=== PATIENT | female | born 1985 | race African-American/Black ===

== ENCOUNTER 2016-11-14 12:38 | Emergency (ER) | payer SELFPAY ==
[~2016-11-14] VITALS: Ht 167.6 cm; Wt 95.0 kg
[2016-11-14] MEDS ORDERED: IBUPROFEN 600MG TABLET PO STA (13:38)
[2016-11-14 13:49] VITALS: BP 140/98
== END 2016-11-14 15:52 | disposition home or self-care (01) ==
LOC: ER 13:12
DX: S20.219A Contusion of unspecified front wall of thorax, initial encounter (principal); F17.200 Nicotine dependence, unspecified, uncomplicated; F12.10 Cannabis abuse, uncomplicated; V49.9XXA Car occupant (driver) (passenger) injured in unspecified traffic accident, initial encounter; Y93.89 Activity, other specified; Y99.8 Other external cause status; Y92.410 Unspecified street and highway as the place of occurrence of the external cause
CPT/HCPCS: 71010; 99283; 99406; Z7610

== ENCOUNTER 2023-05-12 09:54 | Emergency (ER) | payer MEDICAID ==
[~2023-05-12] VITALS: Ht 167.6 cm; Wt 91.0 kg
[2023-05-12 10:15] VITALS: O2SAT 100
[2023-05-12 11:23] LABS: BASOPHILS % 0.5 % (0.0-2.0); EOSINOPHILS % 1.9 % (0.0-5.0); HEMATOCRIT. 46.4 % (36.0-48.0); LYMPHOCYTES % 25.1 % (20.0-50.0); MEAN CORPUSCULAR HEMOGLOBIN 34.2 pg (28.0-32.0); MEAN CORPUSCULAR HGB CONC 34.5 g/dL (31.0-37.0); MEAN CORPUSCULAR VOLUME 99.4 fL (81.0-99.0); MONOCYTES % 4.4 % (2.0-8.0); NEUTROPHILS % 68.1 % (40.0-76.0); PLATELET 215 x1000/uL (130-400); RED BLOOD CELL COUNT 4.67 mill/uL (4.2-5.4); RED CELL DISTRIBUTION WIDTH 12.3 % (11.6-14.6); WHITE BLOOD COUNT 8.4 x1000/uL (4.5-11.0)
[2023-05-12 11:30] LABS: PROTHROMBIN TIME 10.3 sec (9.6-11.0)
[2023-05-12 11:43] LABS: ALANINE AMINOTRANSFERASE 7 IU/L (10-49); ALBUMIN 4.4 g/dL (3.2-4.8); ASPARTATE AMINOTRANSFERASE 11 IU/L (<34); BILIRUBIN TOTAL 0.5 mg/dL (0.1-1.0); CALCIUM 9.6 mg/dL (8.7-10.4); CARBON DIOXIDE 21 mEq/L (21-32); CHLORIDE 101 mEq/L (98-107); CREATININE 0.6 mg/dL (0.6-1.0); GLUCOSE 332 mg/dL (70-105); PROTEIN TOTAL 6.8 g/dL (6.0-8.3); SODIUM 133 mEq/L (136-145)
[2023-05-12 12:44] LABS: UREA NITROGEN BLOOD < 5 mg/dL (9-23)
[2023-05-12 15:51] LABS: CLARITY URINE CLEAR (CLEAR); COLOR URINE YELLOW (YELLOW); PROTEIN URINE NEGATIVE (NEGATIVE); SPECIFIC GRAVITY URINE 1.043 (1.005-1.030)
[2023-05-12 15:52] LABS: GLUCOSE URINE 3+ (NEGATIVE); KETONES URINE NEGATIVE (NEGATIVE); LEUKOCYTE ESTERASE URINE NEGATIVE (NEGATIVE); NITRITE URINE NEGATIVE (NEGATIVE); OCCULT BLOOD URINE NEGATIVE (NEGATIVE); UROBILINOGEN URINE 0.2 E.U./dL (0.2-1.0)
[2023-05-12 16:30] LABS: BACTERIA URINE TRACE; RBC URINE 0-2 /hpf (0-2); SQUAMOUS EPITHELIAL CELL URINE 1+ /lpf (RARE/1+)
[2023-05-12] MEDS ORDERED: ONDA4TAB50 MT (16:53)
[2023-05-12] MEDS ORDERED: METF-414 MT (16:53)
[2023-05-12 17:25] VITALS: BP 136/62; PULSE 90; RESP 16; TEMP 98.2
== END 2023-05-12 17:26 | disposition home or self-care (01) ==
LOC: ER 09:54
DX: R11.2 Nausea with vomiting, unspecified (principal); R42 Dizziness and giddiness; R53.1 Weakness; E11.9 Type 2 diabetes mellitus without complications; F12.10 Cannabis abuse, uncomplicated
CPT/HCPCS: 36415; 80053; 81003; 82962; 85025; 99283